=== PATIENT | male | born 1955 | race Caucasian/White ===

== ENCOUNTER 2018-09-29 15:52 | Emergency (ER) | payer MEDICAID, OTHER ==
[2018-09-29 15:54] VITALS: BMI 34.0
[2018-09-29 16:20] VITALS: BP 121/74; PULSE 80; RESP 18; TEMP 98.2; O2SAT 96
[2018-09-29 17:27] LABS: URINE BACTERIA RARE (<OCC); URINE BILIRUBIN NEGATIVE (NEGATIVE); URINE BLOOD 3+ (NEGATIVE); URINE CLARITY Turbid (Clear); URINE COLOR Red (YELLOW); URINE GLUCOSE (UA) NORMAL (Normal); URINE LEUKOCYTE ESTERASE NEG Leu/uL (Negative); URINE PROTEIN 3+ mg/dL (NEGATIVE); URINE UROBILINOGEN NORMAL mg/dL (0.2-1.0)
--- NOTE | 2018-09-29 17:58 | C.PDOC ---
History Of Present Illness 62 year old male presents to the ED for evaluation of gross hematuria since today. Patient has history of hematuria. Patient has been evaluated by Dr. Hernandez and is not taking Flomax as of recently. Patient denies fever, chills, dysuria, pain or difficulty emptying bladder. Time Seen by Provider: 09/29/18 16:39 Chief Complaint (Nursing): Male Genitourinary History Per: Patient History/Exam Limitations: no limitations Onset/Duration Of Symptoms: Hrs Current Symptoms Are (Timing): Still Present Quality Of Discomfort: denies: "Pain" Associated Symptoms: denies: Fever, Chills, Urinary Symptoms Past Medical History Reviewed: Historical Data, Nursing Documentation, Vital Signs Vital Signs: Last Vital Signs Temp 98.2 F 09/29/18 16:16 Pulse 80 09/29/18 16:16 Resp 18 09/29/18 16:16 BP 121/74 09/29/18 16:16 Pulse Ox 96 09/29/18 16:16 - Medical History PMH: Anemia, Diverticulitis, Gastritis, Hypercholesterolemia Denies: Chronic Kidney Disease Surgical History: Hernia Repair - [facility] Procedures EXC SPERMATIC VARICOCELE (10/25/14) EXCISION OF HEMORRHOIDAL PLEXUS, OPEN APPROACH (08/05/15) EXCISION OF TRANSVERSE COLON, ENDO, DIAGN (07/26/15) INTRODUCTION OF SERUM/TOX/VACCINE INTO MUSCLE, PERC APPROACH (07/26/15) TRANSFUSE NONAUT RED BLOOD CELLS IN PERIPH VEIN, PERC (07/26/15) Family History: States: Unknown Family Hx - Social History Hx Tobacco Use: Yes Hx Alcohol Use: No Hx Substance Use: No - Immunization History Hx Tetanus Toxoid Vaccination: No Hx Influenza Vaccination: Yes Hx Pneumococcal Vaccination: No Review Of Systems Constitutional: Negative for: Fever, Chills Genitourinary: Positive for: Hematuria. Negative for: Dysuria Physical Exam - Physical Exam Appears: Non-toxic, No Acute Distress Skin: Normal Color, Warm, Dry Head: Atraumatic, Normacephalic Eye(s): bilateral: Normal Inspection Oral Mucosa: Moist Neck: Supple Chest: Symmetrical, No Deformity, No Tenderness Cardiovascular: Rhythm Regular, No Murmur Respiratory: Normal Breath Sounds, No Rales, No Rhonchi, No Wheezing Gastrointestinal/Abdominal: Soft, No Guarding, No Rebound Extremity: Normal ROM, Capillary Refill (less than 2 seconds) Neurological/Psych: Oriented x3, Normal Speech, Normal Cognition ED Course And Treatment - Laboratory Results Lab Interpretation: Abnormal (ua + hematuria, no wbc's) O2 Sat by Pulse Oximetry: 96 (on RA) Pulse Ox Interpretation: Normal Progress Note: Urinalysis ordered and reviewed. Medical Decision Making Medical Decision Making: hematuria h/o same will f/u with Dr Gibbs- Urologist- tomorrow Disposition Doctor Will See Patient In The: Office Counseled Patient/Family Regarding: Studies Performed, Diagnosis - Disposition Referrals: Jennifer Moraes MD [Medical Doctor] - Virginie Joseph [Staff Provider] - Disposition: HOME/ ROUTINE Disposition Time: 17:57 Condition: GOOD Additional Instructions: Sigue doug Gibbs- [address] para hacer errol Instructions: Blood in the Urine (Hematuria) in Adults Forms: [facility] (Senegalese) Print Language: CITIZEN OF [place] - Clinical Impression Clinical Impression: Hematuria - Scribe Statement The provider has reviewed the documentation as recorded by the Scribe (Aleta Garcia) Provider Attestation: All medical record entries made by the Scribe were at my direction and personally dictated by me. I have reviewed the chart and agree that the record accurately reflects my personal performance of the history, physical exam, medical decision making, and the department course for this patient. I have also personally directed, reviewed, and agree with the discharge instructions and disposition.
== END 2018-09-29 18:06 | disposition home or self-care (01) ==
LOC: C.ER 15:52
DX: R31.9 Hematuria, unspecified (principal)

== ENCOUNTER 2018-09-29 19:23 | Emergency (ER) | payer OTHER ==
[2018-09-29 19:23] VITALS: BMI 34.0
--- NOTE | 2018-09-29 20:21 | C.PDOC ---
History Of Present Illness 62 year old male with PMHx enlarged prostates s/p laser procedure presents to the ED for evaluation of feeling fullness and insufficient emptying. Patient was seen in the ED earlier today c/o persistent urinary frequency with small urination. Patient was diagnosed with hematuria without UTI. Patient reports he is not taking any flomax or prostate reducing medications. Patient denies fever, chills, nausea, vomit, diarrhea, back pain. Time Seen by Provider: 09/29/18 19:59 Chief Complaint (Nursing): Male Genitourinary History Per: Patient History/Exam Limitations: no limitations Onset/Duration Of Symptoms: Hrs Current Symptoms Are (Timing): Still Present Quality Of Discomfort: "Pain" Associated Symptoms: Urinary Symptoms. denies: Nausea, Vomiting, Diarrhea Recent travel outside of the [place]: No Additional History Per: Patient Past Medical History Reviewed: Historical Data, Nursing Documentation, Vital Signs Vital Signs: Last Vital Signs Temp 97.8 F 09/29/18 19:50 Pulse 76 09/29/18 19:50 Resp 20 09/29/18 19:50 BP 154/89 H 09/29/18 19:50 Pulse Ox 98 09/29/18 19:50 - Medical History PMH: Anemia, Diverticulitis, Gastritis, Hypercholesterolemia Denies: Chronic Kidney Disease Surgical History: Hernia Repair - [facility] Procedures EXC SPERMATIC VARICOCELE (10/25/14) EXCISION OF HEMORRHOIDAL PLEXUS, OPEN APPROACH (08/05/15) EXCISION OF TRANSVERSE COLON, ENDO, DIAGN (07/26/15) INTRODUCTION OF SERUM/TOX/VACCINE INTO MUSCLE, PERC APPROACH (07/26/15) TRANSFUSE NONAUT RED BLOOD CELLS IN PERIPH VEIN, PERC (07/26/15) Family History: States: Unknown Family Hx - Social History Hx Tobacco Use: Yes Hx Alcohol Use: No Hx Substance Use: No - Immunization History Hx Tetanus Toxoid Vaccination: No Hx Influenza Vaccination: Yes Hx Pneumococcal Vaccination: No Review Of Systems Constitutional: Negative for: Fever, Chills Cardiovascular: Negative for: Chest Pain Respiratory: Negative for: Shortness of Breath Gastrointestinal: Positive for: Abdominal Pain. Negative for: Nausea, Vomiting, Diarrhea Genitourinary: Positive for: Frequency Skin: Negative for: Rash Neurological: Negative for: Weakness, Numbness, Headache, Dizziness Physical Exam - Physical Exam Appears: Non-toxic, No Acute Distress Skin: Normal Color, Warm, Dry Head: Atraumatic, Normacephalic Eye(s): bilateral: Normal Inspection Oral Mucosa: Moist Neck: Normal ROM, Supple Chest: Symmetrical Cardiovascular: Rhythm Regular Respiratory: Normal Breath Sounds, No Rales, No Rhonchi, No Wheezing Gastrointestinal/Abdominal: Soft, No Tenderness, No Guarding, No Rebound, Other (no suprapubic fullness) Back: No CVA Tenderness Extremity: Normal ROM, No Tenderness, No Swelling Neurological/Psych: Oriented x3, Normal Speech, Normal Cognition Gait: Steady ED Course And Treatment - Laboratory Results Lab Interpretation: Normal (bladder scan 675 ml) O2 Sat by Pulse Oximetry: 98 (ON RA) Pulse Ox Interpretation: Normal Medical Decision Making Medical Decision Making: Plan: * Flomax 0.4 mg PO * Bladder scan * showed 675 ml of urine Patient reports he talked to his urologist today and has an appointment for tomorrow. seen earlier today for same. hematuria causing bladder irritation and sensation of fullness 675 ml in bladder, No sig urinary retention requiring giang cath at this time ok to d/c home with opt f/u with Urology in AM as pt urinating well, defer giang which may cause further prostate irritation and acute urinary retention. Disposition Doctor Will See Patient In The: Office Counseled Patient/Family Regarding: Studies Performed, Diagnosis - Disposition Referrals: Jennifer Moraes MD [Medical Doctor] - Virginie Joseph [Staff Provider] - Disposition: HOME/ ROUTINE Disposition Time: 20:22 Condition: GOOD Additional Instructions: bladder scan 675 ml ok to f/u with Urology Prescriptions: Tamsulosin [Flomax] 0.4 mg PO DAILY #30 cap Instructions: Blood in the Urine (Hematuria) in Adults Forms: [facility] (Sri Lankan) Print Language: ICELANDIC - Clinical Impression Clinical Impression: Hematuria - Scribe Statement The provider has reviewed the documentation as recorded by the Scribe Toñito Duke All medical record entries made by the Scribe were at my direction and personally dictated by me. I have reviewed the chart and agree that the record accurately reflects my personal performance of the history, physical exam, medical decision making, and the department course for this patient. I have also personally directed, reviewed, and agree with the discharge instructions and disposition.
[2018-09-29 21:01] VITALS: BP 145/80; PULSE 78; RESP 16; TEMP 98.4
[2018-09-29 21:30] VITALS: O2SAT 98
== END 2018-09-29 20:45 | disposition home or self-care (01) ==
LOC: C.ER 19:23
DX: R31.9 Hematuria, unspecified (principal)